=== PATIENT | female | born 1955 | race Caucasian/White ===

== ENCOUNTER → 2023-12-17 | Outpatient (CLI) | payer MEDICARE, SELFPAY ==
--- NOTE | 2023-12-17 | CYSPIN_PTH ---
PATHOLOGY RESULTS PATIENT: SCOOTER KOCH LOC: [facility]#:[id number] AGE/SX: 68/F ROOM: RE12/17/[address]: Dr. Rebecca Hazel MD : 1955 BED: DIS: 12/17/2023 SPEC #: [id number] RECD: 12/18/23 08:05 STATUS: RAUL TINA #: [id number] JLUIS: 12/17/23 00:[address]: Rebecca Hazel DEPT: CYTOLOGY RECD BY: Michelle Stark ENTERED: 12/18/23 08:06 SP TYPE: CYSPIN FL Tissues: Urine Procedures: Pap Stain (control) Special Stain Group II Cytospin Fluid HEADER OPERATION: Not noted PRE-OP DIAGNOSIS: Abnormal Uterine Bleeding TISSUE SUBMITTED: Urine for cytology DIAGNOSIS CYTOLOGY Urine for cytology (cytospin); Negative for high grade urothelial carcinoma, Lazara category II. See comment. KEVEN/ 12/19/2023 COMMENT Specimen primarily consists of benign squamous epithelial cells. Clinical correlation is suggested. The Lazara System for urine cytology diagnostic categorization was used in the evaluation of this case. CYTOLOGY STUDY Slides are reviewed. CYTOLOGY GROSS Received is 30 ml of yellow-cloudy fluid labeled with the patient's name and and designated per the requisition as urine. Submitted for cytology preparation. mr 12/18/23 TC:5 CPT: 48338
[2023-12-17 19:12] LABS: Cytology, Body Fluid / CSF SEE PATHOLOGY REPORT
== END | disposition home or self-care (01) ==
PROVIDERS: Referring Provider Urology; Visit Provider Urology
DX: R31.0 Gross hematuria (principal)
CPT/HCPCS: 88108; 88313

== ENCOUNTER 2023-12-24 10:44 | Outpatient (RCR) | payer MEDICARE, SELFPAY ==
--- NOTE | 2023-12-24 12:47 | HP.PTEVAL ---
Patient's Visit Information Visit Information Visit Information: SCOOTER KOCH is a 68 year old F referred to Physical Therapy by Dr. Rebecca Gallardo MD with a diagnosis of STRESS URINARY INCONTINENCE. Date of Evaluation: 12/24/23 Physical Therapist: Maribeth Reddy, PT, Cert MDT Visit Plan Frequency: 1x/Week Duration: 2-4 Months Plan: INTERNAL MANUAL PF TESTING AND PF THERAPY FOR STRENGTHENING, LENGTHENING/RELAXATION AND ENDURANCE TRAINING APPROPRIATE. HEALTHY BLADDER HABIT EDUCATION. TRAINING IN COORDINATION OF PELVIC FLOOR MUSCULATURE WITH HIP AND CORE (TRANSVERSE ABDOMINUS) MUSCULATURE. CORE STRENGTHENING. POSTURE TRAINING. JOHN LE ROM, STRETCHING AND STRENGTHENING. TRAINING IN ABDOMINAL CAVITY PRESSURE MGMT WITH ADL'S. HEP. Subjective Subjective: Work/Leisure: RETIRED Disability: NO Present symptoms: I DON'T LIKE PEEING IF I COUGH - WITH A DEEP COUGH OR COUGHING SPELL. SHE REPORTS IT A LOT OF URINE THAT COMES OUT WHEN THIS HAPPENS. SHE ALSO REPORTS NOT BEING ABLE TO CONTROL HER BLADDER WHEN SHE VOMITS OR HAS DRY HEAVES. Present since: ABOUT A YEAR Pain Scale: N/A Is it getting better, worse or staying the same: STAYING THE SAME Commenced as a result of: NO APPARENT REASON. Disturbed sleep: GETTING UP 0-2 TIMES A NIGHT TO URINATE. DENIES INCONTINENCE AT NIGHT. Previous history/Previous treatment: 2 C-SECTIONS WITHOUT COMPLICATIONS. UTERINE ABLATION TO STOP PERIODS. INTERMITTENT UTERINE BLEEDING Treatment this episode: PT CONSULT. NO OTHER TREATMENT. Gait: NORMAL How long can you delay the need to urinate: LONG NEEDED - ABOUT AN HOUR. Prolapse (Falling out feeling): NO Frequency of Urination: ABOUT 9 TIMES A DAY. Ability to stop urine flow: PARTIAL Ability to initiate urine stream: YES Dyspareunia: N/A Bowel Incontinence: NO Accidents: NO Unexplained weight loss: NO Imaging: PELVIC US SHOWING GOOD BLADDER EMPTYING PER PATIENT REPORT. UPCOMING IMAGINAG FOR BLEEDING ORDERED BY DR. GALLARDO PER PATIENT REPORT. PATIENT REPORTS THERE WAS NO BLOOD IN HER URINE BUT SHE HAS SOME RECENT HISTORY OF BLEEDING FOR SEVERAL MONTHS THAT SHE HASN'T DONE ANYTHING ABOUT. PMH/Recent major surgery: UNREMARKABLE EXCEPT LBP MAINLY SELF TREATED EXCEPT SOME PT AND CHIROPRACTIC. Objective Objective: Sitting/Standing Posture: POOR. INCREASED LORDOSIS. NO RELEVANT LATERAL SHIFT. Active Correction of posture: ABLE TO PARTIALLY CORRECT. DOES NOT MAINTAIN. Other Observations: INDEP GAIT AND TRANSFERS. Sensory deficit: JOHN LE LIGHT TOUCH SENSATION GROSSLY INTACT AND SYMMETRICAL ROM deficit: MILD JOHN HS AND CALF TIGHTNESS. JOHN HIP FLEXOR AND ROTATOR TIGHTNESS. Motor deficit: JOHN HIPS 4/5. KNEES 5/5. ANKLES 5/5. Reflexes: UNABLE TO ELICIT JOHN LE DTR'S. Dural Signs: NEGATIVE JOHN LE'S. Lumbar mvmt loss: flex - NIL ext - MOD R SG - MON L SG - MIN PATIENT DENIES PAIN DURING AND AFTER LUMBAR ROM TESTING. Core strength: POOR Palpation: NO ACUTE BACK OR HIP TENDERNESS. DEFERRED INTERNAL PELVIC TESTING UNTIL TESTING COMPLETE FOR BLEEDING. FUNCTIONAL SCREEN: Incontinence Impact Questionnaire Score: 1 Urogenital Distress Inventory Score: 1 Goals Goal 1:: DECREASE URINARY LEAKAGE EPISODES WITH DEEP COUGHING AND VOMITING BY AT LEAST 50% Goal Time Frame: 8-12 Weeks Goal 2:: PATIENT WILL DEMONSTRATE/COMMUNICATE 10 CONSISTENT AND CONSECUTIVE 10 SECOND PELVIC FLOOR MUSCLE CONTRACTIONS TO DEMONSTRATE IMPROVED PELVIC FLOOR ENDURANCE. Goal Time Frame: 8-12 Weeks Goal 3:: DEVELOP HEALTHY FLUID INTAKE HABITS WITH FLUID INTAKE OF ? BODY WEIGHT IN OUNCES PER DAY AND 2/3 BEING WATER. Goal Time Frame: 2-4 Weeks Goal 4:: NORMALIZE VOIDING FREQUENCEY TO EVERY 3-4 HOURS. Goal Time Frame: 4-6 Weeks Goal 5:: PATIENT WILL BE INDEP WITH A [facility]/HOME INSTRUCTIONS FOR CONTINUED IMPROVEMENT ONCE FORMAL PHYSICAL THERAPY CONCLUDES. Goal Time Frame: 8-12 Weeks Rehabilitation Potential Physical Therapy Diagnosis: PELVIC FLOOR, CORE AND HIP WEAKNESS AND STIFFNESS. Rehabilitation Potential: Good Anticipated Interventions Patient/Client Instruction: Educate patient on: Condition, Plan of Care and Risk Factors For the Purpose of:: To improve self management Therapeutic Exercise to Include: Strength training, Endurance training, Coordination, Postural training, Flexibilty training, Neuromotor development and Relaxation training For the Purpose of:: To improve muscle performance and motor function, To decrease soft tissue restriction, To increase flexibility/ROM and To improve endurance Manual Therapy Techniques to Include: Soft tissue mobilization Comment: PF TESTING, STM AND BIOFEEDBACK NEEDED/APPROPRIATE For the Purpose of:: To improve muscle performance and motor function and To decrease soft tissue restriction Text: Thank you for the opportunity to evaluate your patient. For Medicare and Medicare HMO plans, please review the plan of care and approve it. It will need to be FAXED BACK to us at [phone] for Medicare purposes. For Medicare only, by signing this I certify the plan of care. Please let me know if there are questions or concerns regarding this plan of care. Physician Signature: Date:
--- NOTE | 2024-01-24 14:03 | HP.PT.NRP ---
Patient Information Patient Information: SCOOTER KOCH was seen in my office for initial evaluation on 12/24/23. The following Plan of Care was established for this patient: POC Established Initial Frequency: 1x/Week Initial Duration: 2-4 Months Anticipated Interventions Patient/Client Instruction: Educate patient on: Condition, Plan of Care and Risk Factors For the Purpose of:: To improve self management Therapeutic Exercise to Include: Strength training, Endurance training, Coordination, Postural training, Flexibilty training, Neuromotor development and Relaxation training For the Purpose of:: To improve muscle performance and motor function, To decrease soft tissue restriction, To increase flexibility/ROM and To improve endurance Manual Therapy Techniques to Include: Soft tissue mobilization Comment: PF TESTING, STM AND BIOFEEDBACK NEEDED/APPROPRIATE For the Purpose of:: To improve muscle performance and motor function and To decrease soft tissue restriction Last Seen Last Seen: This patient was last seen in our office . Pertinent comments regarding their Physical therapy will appear below: Patient apparently called and cancelled all scheduled appointments 01/16/24. Reason unknown. I will go ahead and discharge her chart for now but would be happy to resume PT when ordered/appropriate. At this point I will be discontinuing this patient from physical therapy. I would be happy to see this patient again in the future if found appropriate by the physician. Thank you! Maribeth Reddy, PT, Cert MDT
== END 2023-12-24 19:00 | disposition home or self-care (01) ==
LOC: PT 10:44
PROVIDERS: Referring Provider Urology; Visit Provider Urology
DX: R32 Unspecified urinary incontinence (principal)
CPT/HCPCS: 97162

== ENCOUNTER → 2023-12-31 | Outpatient (CLI) | payer MEDICARE, OTHER, SELFPAY ==
--- NOTE | 2023-12-31 17:00 | US_ITS ---
STUDY: ULTRASOUND OF THE FEMALE PELVIS - COMPLETE REASON FOR EXAM: Female, 68 years old. AUB LMP: Patient is postmenopausal. TECHNIQUE: Transabdominal and Transvaginal TECHNICAL QUALITY: Adequate. COMPARISON: None. FINDINGS: The uterus is anteverted and is in a midline position. The uterus measures 9.9 cm x 5.1 cm x 3.9 cm. There is a Nabothian cyst of the cervix. The endometrium is thickened and measures 9 mm in thickness, and is hyperechoic. There is no demonstrated endometrial mass. There is a 1.4 cm x 1 cm x 1.3 cm uterine fibroid. I.U.D. - The patient does not have an I.U.D. The right ovary is non-visualized. The left ovary is visualized. There is no fluid in the cul-de-sac. The pre void volume of the bladder was 249 ml. US/Pelvic (Non ) IMPRESSION: Small uterine fibroid. Endometrial thickening. Electronically Signed: Lorenzo Ford MD at 14:07 EDT ,
== END | disposition home or self-care (01) ==
PROVIDERS: Referring Provider Urology; Visit Provider Urology
DX: N93.9 Abnormal uterine and vaginal bleeding, unspecified (principal)
CPT/HCPCS: 76856

== ENCOUNTER → 2024-02-27 | Outpatient (CLI) | payer MEDICARE, OTHER, SELFPAY ==
--- NOTE | 2024-02-27 | EMB_PTH ---
PATIENT: SCOOTER KOCH LOC: [facility] U#:[id number] AGE/SX: 68/F ROOM: RE02/27/[address]: IDA Jimenez : 1955 BED: DIS: 02/27/2024 SPEC #: [id number] RECD: 02/27/24 13:25 STATUS: RAUL REMaynor #: [id number] JLUIS: 02/27/24 00:[address]: Katlin Alejandre NP DEPT: SURGICAL PATHOLOGY RECD BY: Corey Camacho ENTERED: 02/27/24 13:25 SP TYPE: ENDOM BX/C JUAN DR: No Primary Care Phys Tissues: Endometrium, NOS Procedures: Surgery Specimen Level IV HEADER OPERATION: Endometrial biopsy PRE-OP DIAGNOSIS: Abnormal uterine bleeding TISSUE SUBMITTED: Endometrial tissue MICROSCOPIC DIAGNOSIS Endometrium, biopsy: Scant fragments of benign endocervical tissue, inflamed. Focal glandular breakdown. AM/mr 02/28/2024 MICROSCOPIC DESCRIPTION Slides are reviewed. GROSS DESCRIPTION Received is one container labeled with the patient's name and not further designated. The specimen consists of multiple irregular fragments of light to dark sidhu soft tissue measuring in aggregate 3.0 x 2.0 x <0.1cm. The specimen is submitted in its entirety in one cassette. AM/mr 02/27/2024 TC:3 CPT:28621
[2024-03-05 19:36] LABS: HPV Reflexed? NOT INDICATED
== END | disposition home or self-care (01) ==
PROVIDERS: Referring Provider Nurse Practitioner Women's Health; Visit Provider Nurse Practitioner Women's Health
DX: Z12.4 Encounter for screening for malignant neoplasm of cervix (principal)
CPT/HCPCS: 88175; 88305; G0145

== ENCOUNTER → 2024-03-16 | Outpatient (CLI) | payer MEDICARE, OTHER, SELFPAY ==
[2024-03-16 10:08] LABS: Basophil# 0.04 X10^3/uL; Basophil% 0.6 % (0-1); Eosinophil# 0.12 X10^3/uL; Eosinophils% 1.9 % (0-5); Hematocrit 42.1 % (37-47); Hemoglobin 13.4 g/dL (12.0-15.0); Lymphocyte % 26.5 % (19-41); Mean Corp Hgb Conc 31.8 g/dL (32-36); Mean Corpuscular Hgb 29.8 pg (27.0-32.0); Mean Corpuscular Volume 93.6 fL (81-99); Mean Platelet Vol. 9.6 fl (6.2-12.0); Monocyte# 0.52 X10^3/uL; Monocyte% 8.1 % (0-10); NRBC Flagged by Analyzer 0 % (0-5); Neutrophil # 4.02 X10^3/uL (2.7-7.7); Neutrophil % 62.6 % (47-70); Platelet Count 197 K/mm3 (150-450); RBC Distribution Width CV 12.9 % (11.6-14.6); White Blood Count 6.4 K/mm3 (4.4-11.0)
== END | disposition home or self-care (01) ==
LOC: PAVLAB 09:35
PROVIDERS: Referring Provider Obstetrics & Gynecology; Visit Provider Obstetrics & Gynecology
DX: N95.0 Postmenopausal bleeding (principal); Z13.29 Encounter for screening for other suspected endocrine disorder; N84.1 Polyp of cervix uteri; N85.2 Hypertrophy of uterus; Z13.1 Encounter for screening for diabetes mellitus
CPT/HCPCS: 36415; 83036; 84443; 85025